=== PATIENT | male | born 1990 | race Caucasian/White ===

== ENCOUNTER 2018-07-20 18:15 | Emergency (ER) | payer SELFPAY ==
[~2018-07-20] VITALS: Ht 175.3 cm; Wt 95.5 kg
[2018-07-20 18:26] VITALS: Ht 175.3 cm; Wt 95.5 kg
[2018-07-20] MEDS ORDERED: TRAZODONE HCL150 MG PO (18:28)
[2018-07-20] MEDS ORDERED: [UNRECOGNIZED DRUG - OTHER] (18:29)
[2018-07-20] MEDS ORDERED: NORVASC5 MG PO (18:30)
[2018-07-20] MEDS ORDERED: [UNRECOGNIZED DRUG - OTHER] (18:30)
[2018-07-20 18:58] LABS: BASOPHILS 0.1 % (0-2); EOSINOPHILS 1.6 % (0-7); HEMATOCRIT 38.9 % (42.0-54.0); HEMOGLOBIN 14.1 g/dL (13.5-17.5); IMMATURE GRANULOCYTES 0.7 % (0-5); LYMPHOCYTES 8.5 % (15-50); MCH 30.6 pg (26.0-34.0); MCHC 36.2 g/dL (31.0-37.0); MCV 84.4 fL (80.0-100.0); MEAN PLATELET VOLUME 9.1 fL (7.4-10.4); MONOCYTES 9.3 % (2-11); NEUTROPHILS 79.8 % (40-80); PLATELET COUNT 304 10x3/uL (130-400); RBC 4.61 10x6/uL (4.20-6.10); WBC 13.5 10x3/uL (4.8-10.8)
[2018-07-20 19:18] LABS: ALBUMIN 3.3 g/dL (3.4-5.0); ALKALINE PHOSPHATASE 119 U/L (46-116); ALT (SGPT) 73 U/L (10-68); BILIRUBIN - TOTAL 1.08 mg/dL (0.2-1.3); CALC OSMOLALITY 272 mosm/kg (275-300); CARBON DIOXIDE 24.5 mmol/L (21.0-32.0); CHLORIDE - SERUM 101 mmol/L (98-107); CREATININE - SERUM 0.9 mg/dL (0.6-1.3); GLUCOSE 94 mg/dL (74-106); POTASSIUM - SERUM 3.3 mmol/L (3.5-5.1); PROTEIN - SERUM 8.5 g/dL (6.4-8.2); SODIUM 137 mmol/L (136-145); UREA NITROGEN 11 mg/dL (7-18); eGFR NON AFRICAN AMERICAN > 90 mL/min (90-120)
[2018-07-20] MEDS ORDERED: CLEOCIN HCL150 MG PO (19:50)
[2018-07-20 20:35] VITALS: BP 146/94
== END 2018-07-20 20:38 | disposition home or self-care (01) ==
LOC: D.ER 18:15
PROVIDERS: Emergency Medicine
DX: L03.116 Cellulitis of left lower limb (principal); L03.115 Cellulitis of right lower limb